=== PATIENT | female | born 1990 | race Hispanic/Latino ===

== ENCOUNTER 2022-11-08 19:51 | Inpatient (IN) | payer MEDICAID, OTHER ==
[~2022-11-08] VITALS: Ht 152.4 cm; Wt 55.7 kg
[~2022-11-08 19:51] MED LIST: PREN1TAB80 PO
[2022-11-08] MEDS ORDERED: ONDANSETRON 4MG INJ IVP ONE (21:30)
[2022-11-08] MEDS ORDERED: LIDOCAINE HCL 2% VISCOUS 15 ML UDCUP PO ONE (21:30)
[2022-11-08] MEDS ORDERED: MAG/ALUM/SIMETH 30 ML UDCUP PO ONE (21:30)
[2022-11-08] MEDS ORDERED: PANTOPRAZOLE 40 MG/VIAL IVP ONE (21:30)
[2022-11-08] MEDS ORDERED: 0.9%NACL 1000ML 1,000 ML IV ONE (21:30)
[2022-11-08 21:38] LABS: BASOPHILS % (AUTO) 0.2 % (0.0-5.0); EOSINOPHILS % (AUTO) 0.1 % (0.0-8.0); HEMATOCRIT 43.1 % (36-48); LYMPHOCYTES % (AUTO) 5.6 % (21.0-51.0); MEAN CORPUSCULAR HEMOGLOBIN 29.9 pg (27.0-33.0); MEAN CORPUSCULAR HGB CONC 33.4 g/dL (32.0-36.0); MEAN CORPUSCULAR VOLUME 89.4 fL (79-99); MONOCYTES % (AUTO) 4.3 % (3.0-13.0); NEUTROPHILS % (AUTO) 89.3 % (40.0-77.0); PLATELET COUNT (AUTO) 295 K/uL (130-400); RED BLOOD CELL COUNT(AUTO) 4.82 MIL/uL (4.00-5.50); RED CELL DISTRIBUTION WIDTH 12.3 % (11.0-15.5); WHITE BLOOD COUNT (AUTO) 19.6 K/uL (4.8-10.8)
[2022-11-08 21:52] LABS: CREATININE 0.7 mg/dL (0.5-1.5)
[2022-11-08 21:57] LABS: ALBUMIN 4.4 g/dL (3.5-5.0); TOTAL PROTEIN, SERUM 8.4 g/dL (6.0-8.3)
[2022-11-08] MEDS ORDERED: POTASSIUM CHLORIDE 10% ELIXIR 20 MEQ/15 ML UDCUP PO STA (22:24)
[2022-11-08] MEDS ORDERED: 1/2NS+20MEQ KCL/1000ML 1,000 ML IV STA (22:24)
[2022-11-08] MEDS ORDERED: MORPHINE 2 MG SYG IVP STA (22:28)
[2022-11-08 23:24] LABS: APPEARANCE,URINE CLOUDY (CLEAR); BILIRUBIN,URINE NEGATIVE (NEGATIVE); COLOR,URINE YELLOW (YELLOW); GLUCOSE, URINE (UA) NEGATIVE (NEGATIVE); KETONES,URINE NEGATIVE (NEGATIVE); LEUKOCYTE ESTERASE ,URINE 25 Leu/uL (NEGATIVE); NITRATE,URINE NEGATIVE (NEGATIVE); OCCULT BLOOD,URINE NEGATIVE (NEGATIVE); PROTEIN,URINE 10 mg/dL (NEGATIVE); UROBILINOGEN,URINE 0.2 mg/dL (0.2-1.0)
[2022-11-08 23:25] LABS: HCG,QUALITATIVE URINE NEGATIVE (NEGATIVE)
[2022-11-08 23:28] LABS: BACTERIA,URINE RARE /HPF (None Seen); MUCUS,URINE MANY LPF (None Seen); SQUAMOUS EPITHELIAL CELL,UR FEW /HPF (0-2)
[2022-11-09] VITALS (7 sets, daily range): BP systolic 89–104; BP diastolic 56–69
[2022-11-09] MEDS ORDERED: HYDROMORPHONE 1 MG INJ IV PRN (02:00)
[2022-11-09] MEDS ORDERED: ONDANSETRON 4MG INJ IV PRN (02:00)
[2022-11-09] MEDS ORDERED: ACETAMINOPHEN 325 MG TAB PO PRN ×2 (02:00)
[2022-11-09] MEDS ORDERED: MORPHINE 2 MG SYG IV PRN (02:00)
[2022-11-09 03:56] LABS: BASOPHILS % (AUTO) 0.4 % (0.0-5.0); EOSINOPHILS % (AUTO) 0.4 % (0.0-8.0); HEMATOCRIT 37.7 % (36-48); LYMPHOCYTES % (AUTO) 20.7 % (21.0-51.0); MEAN CORPUSCULAR HEMOGLOBIN 29.9 pg (27.0-33.0); MEAN CORPUSCULAR HGB CONC 33.4 g/dL (32.0-36.0); MEAN CORPUSCULAR VOLUME 89.3 fL (79-99); MONOCYTES % (AUTO) 5.9 % (3.0-13.0); NEUTROPHILS % (AUTO) 72.4 % (40.0-77.0); PLATELET COUNT (AUTO) 260 K/uL (130-400); RED BLOOD CELL COUNT(AUTO) 4.22 MIL/uL (4.00-5.50); RED CELL DISTRIBUTION WIDTH 12.4 % (11.0-15.5); WHITE BLOOD COUNT (AUTO) 8.1 K/uL (4.8-10.8)
[2022-11-09 04:05] LABS: CREATININE 0.6 mg/dL (0.5-1.5); MAGNESIUM 2.1 mg/dL (1.80-2.40); PHOSPHORUS 3.4 mg/dL (2.5-4.9)
[2022-11-09 04:20] LABS: INR 1.01 (0.85-1.15)
[2022-11-09 04:21] LABS: PARTIAL THROMBOPLASTIN TIME 25.4 SEC (26.3-35.5)
[2022-11-09] MEDS: ZOSYN 3.375GM+NS 50ML 50 ML IVPB SCH ×3 (04:48→21:10)
[2022-11-09] MEDS: LACTATED RINGERS 1000ML 1,000 ML IV SCH ×2 (04:48→12:28)
[2022-11-09] MEDS ORDERED: ENOXAPARIN SODIUM 40 MG/0.4 ML SYRINGE SQ SCH (09:00)
[2022-11-09] MEDS: FAMOTIDINE 20MG VIAL IV SCH ×2 (09:31→21:10)
[2022-11-10] VITALS (27 sets, daily range): BP systolic 93–109; BP diastolic 52–74
[2022-11-10] MEDS: LACTATED RINGERS 1000ML 1,000 ML IV SCH (03:14)
[2022-11-10] MEDS: ZOSYN 3.375GM+NS 50ML 50 ML IVPB SCH ×3 (05:18→20:50)
[2022-11-10 05:48] LABS: BASOPHILS % (AUTO) 0.7 % (0.0-5.0); EOSINOPHILS % (AUTO) 2.3 % (0.0-8.0); HEMATOCRIT 34.5 % (36-48); LYMPHOCYTES % (AUTO) 35.4 % (21.0-51.0); MEAN CORPUSCULAR HEMOGLOBIN 29.8 pg (27.0-33.0); MEAN CORPUSCULAR HGB CONC 32.2 g/dL (32.0-36.0); MEAN CORPUSCULAR VOLUME 92.5 fL (79-99); MONOCYTES % (AUTO) 6.1 % (3.0-13.0); NEUTROPHILS % (AUTO) 55.3 % (40.0-77.0); PLATELET COUNT (AUTO) 215 K/uL (130-400); RED BLOOD CELL COUNT(AUTO) 3.73 MIL/uL (4.00-5.50); RED CELL DISTRIBUTION WIDTH 12.4 % (11.0-15.5); WHITE BLOOD COUNT (AUTO) 5.6 K/uL (4.8-10.8)
[2022-11-10 06:33] LABS: ALBUMIN 2.9 g/dL (3.5-5.0); CREATININE 0.8 mg/dL (0.5-1.5); CRP QUANTITATIVE 4.5 mg/L (0.00-9.0); MAGNESIUM 1.9 mg/dL (1.80-2.40); TOTAL PROTEIN, SERUM 5.9 g/dL (6.0-8.3)
[2022-11-10] MEDS: FAMOTIDINE 20MG VIAL IV SCH ×2 (08:33→20:50)
[2022-11-10] MEDS ORDERED: LIDOCAINE PF 100MG/5ML (2%) SYRINGE 5ML ONE (09:45)
[2022-11-10] MEDS ORDERED: SUCCINYLCHOLINE CHLORIDE 20 MG/ML 10 ML VIAL ONE (09:45)
[2022-11-10] MEDS ORDERED: DEXAMETHASONE SOD PHOSPHATE 10MG/ML 1ML VIAL ONE (09:45)
[2022-11-10] MEDS ORDERED: GLYCOPYRROLATE 1 MG/5 ML SYRINGE ONE (09:46)
[2022-11-10] MEDS ORDERED: PROPOFOL 10 MG/ML 20ML VIAL IV ONE (09:46)
[2022-11-10] MEDS ORDERED: MIDAZOLAM HCL 1 MG/ML 2ML VIAL ONE (09:46)
[2022-11-10] MEDS ORDERED: NEOSTIGMINE 5MG/5ML SYR IV ONE (09:46)
[2022-11-10] MEDS ORDERED: ONDANSETRON 4MG INJ ONE (09:46)
[2022-11-10] MEDS ORDERED: FENTANYL CITRATE PF 50 MCG/1 ML 2ML VIAL ONE ×2 (09:47→12:39)
[2022-11-10] MEDS ORDERED: ROCURONIUM 10MG/1ML SYR 10 MG/ML ML ONE (09:47)
[2022-11-10] MEDS ORDERED: BUPIVACAINE/EPI/PF 0.25% 10ML VIAL IJ ONE (12:30)
[2022-11-10] MEDS ORDERED: LIDOCAINE HCL 1% 20 ML VIAL INJ ONE (12:30)
[2022-11-10] MEDS ORDERED: CEFAZOLIN SODIUM 1 GM VIAL IRRIG ONE (12:40)
[2022-11-10] MEDS ORDERED: HYDROMORPHONE 1 MG INJ ONE (13:33)
[2022-11-10] MEDS: OXYCODONE/ACETAMIN 5/325MG TAB PO PRN ×2 (15:30→21:07)
[2022-11-11] MEDS ORDERED: HYDROMORPHONE 0.5 MG SYG (0.5MG/0.5ML) ONE (01:48)
[2022-11-11 03:45] VITALS: BP 94/54
[2022-11-11] MEDS: ZOSYN 3.375GM+NS 50ML 50 ML IVPB SCH (06:30)
[2022-11-11 07:00] VITALS: BP 99/57
[2022-11-11] MEDS: FAMOTIDINE 20MG VIAL IV SCH (08:43)
[2022-11-11] MEDS: OXYCODONE/ACETAMIN 5/325MG TAB PO PRN ×2 (08:43→14:36)
[2022-11-11] MEDS ORDERED: SIMETHICONE 80 MG TAB.CHEW PO SCH (10:30)
[2022-11-11 12:00] VITALS: BP 95/58
== END 2022-11-11 16:00 | disposition home or self-care (01) | DRG 418 ==
LOC: EDH 19:51 → EDHIP 19:52 → 3AH 11-09 04:30
PROVIDERS: ADMIT Internal Medicine; ATTEND Internal Medicine
PROC: 0FT44ZZ Resection of Gallbladder, Percutaneous Endoscopic Approach (ICD-10-PCS; principal; 2022-11-10 12:06)
DX: K80.00 Calculus of gallbladder with acute cholecystitis without obstruction (principal); N39.0 Urinary tract infection, site not specified; Z20.822 Contact with and (suspected) exposure to COVID-19; E87.6 Hypokalemia; K21.9 Gastro-esophageal reflux disease without esophagitis; Z98.891 History of uterine scar from previous surgery
CPT/HCPCS: 36415; 74176; 76705; 80048; 80053; 81001; 81025; 82150; 83605; 83690; 83735; 84100; 84145; 85025; 85610; 85730; 86140; 86850; 86900; 86901; 87040; 87088; 87635; 93005; 96361; 96374; 96375; C9113; G0378; J0330; J0690; J1100; J1170; J1650; J2001; J2250; J2405; J2543; J2704; J2710; J3010; J3480; J3490; J7030; J7120